=== PATIENT | male | born 2000 | race Caucasian/White ===

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

== ENCOUNTER 2019-07-05 09:48 | Emergency (ER) | payer BC ==
[2019-07-05 10:15] VITALS: BP 152/97
--- NOTE | 2019-07-05 10:27 | UC ---
Skin Complaint HPI - HPI Summary HPI Summary: 19-year-old male who has some soreness to the right tip of his tongue and also when he was looking at that in the mirror today he noticed that the hard palate in his mouth was whitish in color. He is a nonsmoker however he does vape using a "Saadia". He has a past tobacco chewer but usually put that in the left lower lip. - History of Current Complaint Chief Complaint: [facility] Time Seen by Provider: 07/05/19 10:05 Stated Complaint: ORAL COMPLAINT Hx Obtained From: Patient Onset/Duration: Gradual Onset Skin Exposure Onset/Duration: Hours Ago Timing: Constant Onset Severity: Mild Current Severity: Mild Pain Intensity: 3 Location: Other - Right side tip of tongue. Palate. Character: Pain - The hard palate has no pain, difficulty He States Feels like a Canker Sore Developing. Aggravating Factor(s): Nothing Alleviating Factor(s): Nothing Associated Signs & Symptoms: Positive: Negative - Allergy/Home Medications Allergies/Adverse Reactions: Allergies Allergy/AdvReac Type Severity Reaction Status Date / Time No Known Allergies Allergy Verified 07/05/19 10:07 PMH/Surg Hx/FS Hx/Imm Hx Previously Healthy: Yes - Surgical History Surgical History: None - Family History Known Family History: Positive: Hypertension - Social History Alcohol Use: Occasionally Substance Use Type: None Smoking Status (MU): Former Smoker Type: eCigarettes Amount Used/How Often: 1/2 CAN Length of Time of Smoking/Using Tobacco: 4-5 MOS When Did the Patient Quit Smoking/Using Tobacco: 2017 - Immunization History Vaccination Up to Date: Yes Review of Systems All Other Systems Reviewed And Are Negative: Yes Skin: Positive: Other - Patient states he feels like he has a canker sore developing in the right this time. He also states he noticed when looking in the mirror this morning that his hard palate had some white color to it. Is Patient Immunocompromised?: No Physical Exam Triage Information Reviewed: Yes Appearance: Well-Appearing, No Pain Distress, Well-Nourished Vital Signs: Initial Vital Signs Temp 97.5 F 07/05/19 10:08 Pulse 72 07/05/19 10:08 Resp 14 07/05/19 10:08 BP 152/97 07/05/19 10:08 Pulse Ox 98 07/05/19 10:08 Vital Signs Reviewed: Yes Eyes: Positive: Conjunctiva Clear ENT: Positive: Pharynx normal, Uvula midline, Other - Unable to visualize tympanic members because of cerumen in ear canal. The patient has a very tiny pink papule right side of tongue which may develop into a canker sore. The hard palate is whitish in color but no texture and no evidence of infection or thrush. I think this may be his norm and he just notices for the first time. Course/Dx - Course Course Of Treatment: Patient is comfortable here. I advised him if the hard palate becomes painful or tender or if he starts running a fever or becomes swollen or any concerns he is to follow-up with Dr. Sofia. Patient prefers to stay in [place]. - Diagnoses Provider Diagnosis: Canker sores oral Discharge - Sign-Out/Discharge Documenting (check all that apply): Patient Departure All imaging exams completed and their final reports reviewed: No Studies - Discharge Plan Condition: Good Disposition: HOME Patient Education Materials: Canker Sores (ED) Referrals: TERRY De La Rosa [Primary Care Provider] - Harmeet Sofia MD [Medical Doctor] - Additional Instructions: If you notice any changes or worsening in the skin color or condition of the skin in your mouth then follow up with the ear nose and throat physician, Dr. Sofia. If the tongue area turns into a canker sore then warm saltwater swishes and spits 4 times a day. - Billing Disposition and Condition Condition: GOOD Disposition: Home
== END 2019-07-05 10:33 | disposition home or self-care (01) ==
LOC: UCCORT 09:48
DX: K12.0 Recurrent oral aphthae (principal); F17.290 Nicotine dependence, other tobacco product, uncomplicated
CPT/HCPCS: 99211; G0463